=== PATIENT | male | born 1975 | race Caucasian/White ===

== ENCOUNTER 2021-01-20 22:54 | Emergency (ER) | payer MEDICARE ==
[~2021-01-20 22:54] MED LIST: ASPIRIN CHEWABL81 MG PO; AUGMENTIN 875-1 EACH PO; DEPAKOTE500 MG PO; KEPPRA1000 MG PO; NORCO 10-325 T1 EACH PO; PHENOBARBITAL60 MG PO; PRAVACHOL40 MG PO; TESSALON PERLE100 MG PO; VALIUM 5 MG TAB5 MG PO; VENTOLIN HFA 66.7 GM INH; ZYRTEC10 M3 PO
[2021-01-21 01:18] LABS: HEMOGLOBIN 13.7 gm/dl (14.0-17.5); RED BLOOD COUNT 4.42 M/UL (4.20-5.50); WHITE BLOOD COUNT 7.3 K/UL (4.5-11.0)
[2021-01-21 01:44] LABS: BUN/CREATININE RATIO 12 (0-10)
[2021-01-21] MEDS ORDERED: NITROGLYCERIN0.4 MG SL (04:04)
[2021-01-21] MEDS ORDERED: ASPIRIN CHEWABL81 MG PO (04:04)
== END 2021-01-21 04:20 | disposition home or self-care (01) ==
LOC: ER1 22:54
PROVIDERS: Family Medicine
DX: R07.9 Chest pain, unspecified (principal)
CPT/HCPCS: 71045; 80053; 81001; 82550; 82553; 83874; 84484; 85025; 93005; 99285

== ENCOUNTER → 2021-02-21 | Outpatient (CLI) | payer MEDICARE ==
[~2021-02-21] MED LIST changes: +NITROGLYCERIN0.4 MG SL
== END ==
LOC: HEART 5 11:30
DX: R07.9 Chest pain, unspecified (principal)